=== PATIENT | male | born 1975 | race African-American/Black ===

== ENCOUNTER 2019-08-18 08:30 | Emergency (ER) | payer MEDICAID, SELFPAY ==
--- NOTE | ~2019-08-18 | XR_ITS ---
EXAMINATION: XR hand RT min 3V EXAM DATE: 08/18/2019 08:52 INDICATION: Initial encounter following injury, with pain of the right hand. Laceration to third MCP joint. TECHNIQUE: Right hand frontal, lateral and oblique projections obtained and reviewed. There is no pr ior study for comparison. FINDINGS: Right metacarpal bones are unremarkable. There is sliver-like ossific density dorsal to the third proximal interphalangeal joint measuring about 3 mm in length. This finding has been indicated . Differential diagnosis includes tiny avulsion fracture (could be open posttraumatic given reported laceration), versus foreign body. There is an old fifth proximal phalangeal shaft fracture. IMPRESSION: Tiny right third finger sliver-like density, fracture versus foreign body. Reviewed, dictated and finalized at location A. PROCESSING SPECIALIST IMPRESSION: Tiny right third finger sliver-like density, fracture versus forei gn body.
[2019-08-18 08:30] VITALS: BP 190/100; PULSE 72; RESP 16; TEMP 36.7; O2SAT 96
--- NOTE | 2019-08-18 08:46 | ED.WOUNDLAC ---
HPI - Wound/Laceration General Chief Complaint: Wound/Laceration Stated Complaint: lac finger Time Seen by Provider: 08/18/19 08:32 Source: patient Mode of arrival: ambulatory Limitations: no limitations History of Present Illness HPI narrative: Patient presents with chief complaint of laceration to the dorsal aspect of his right hand. Patient states that he became angry last night at approximately 9 PM and punched a flat screen TV. He reports he has had a prior fractures to the right hand due to punching things. Patient reports that he has had issues with becoming angry since losing his to cancer this past year. Patient reports decreased sensation to the hand is his typical baseline due to prior injuries. He denies any acute loss of range of motion. He denies suicidal or homicidal ideations at this time. Related Data Allergies Allergy/AdvReac Type Severity Reaction Status Date / Time No Known Allergies Allergy Verified 08/18/19 08:47 Review of Systems Review of Systems: Narrative: CONSTITUTIONAL: Denies fever, chills, or sweats. EYES: Denies visual changes, redness, or discharge. ENT: Denies rhinorrhea, congestion, sore throat, or otalgia. CARDIOVASCULAR: Denies chest pain, palpitations, or edema. RESPIRATORY: Denies cough or dyspnea. GASTROINTESTINAL: Denies abdominal pain, nausea, vomiting, or diarrhea. GENITOURINARY: Denies dysuria or hematuria. SKIN: Laceration right hand third digit. Abrasion to right fourth and fifth digit. MUSCULOSKELETAL: Denies back pain, joint pain, or myalgia. NEUROLOGIC: Denies headache, numbness, dizziness, or weakness. PSYCHIATRIC: Denies anxiety or depression. Exam Narrative: Exam Narrative: GENERAL: Well-appearing, well-nourished, and in no acute distress. HEAD: Normocephalic, atraumatic. EYES: PERRLA and EOMI. CHEST: Clear to auscultation. No respiratory distress. No wheezes rales or rhonchi HEART: Regular rate and rhythm. No murmur heard. Normal peripheral pulses. ABDOMEN: Soft, nontender, nondistended, normal active bowel sounds. EXTREMITIES: Range of motion intact. minimal edema noted around laceration site SKIN: 4 similar laceration to the dorsal aspect of the right third digit. Tendon is exposed but intact. No obvious foreign bodies noted. Abrasions noted to the dorsal aspect of fourth and fifth digits without any active bleeding. NEURO: No focal deficits. Alert and oriented x3. PSYCH: Normal mood and affect. Course Vital Signs Vital signs: Vital Signs Temperature 98.1 F 08/18/19 08:30 Pulse Rate 72 08/18/19 08:30 Respiratory Rate 16 08/18/19 08:30 Blood Pressure 190/100 H 08/18/19 08:30 Pulse Oximetry 96 08/18/19 08:30 Temperature 98.1 F 08/18/19 08:30 Pulse Rate 72 08/18/19 08:30 Respiratory Rate 16 08/18/19 08:30 Blood Pressure 190/100 H 08/18/19 08:30 Pulse Oximetry 96 08/18/19 08:30 Procedures Laceration Laceration 1: Date: 08/18/19 Site: hand Side (If applicable): right Size (cm): 4 Description: irregular Depth: simple, single layer (WITH SUBCUTANEOUS LAYER) Local Anesthetic: lidocaine 1% Amount of anesthesia used (mL): 4 Pre-repair: irrigated extensively ====== Skin Level ====== Skin layer closed with: nylon Size (cm): 4-0 Number of sutures: 6 ====== Subcutaneous Layer ====== Subcutaneous layer closed with: chromic gut Size: 4-0 Number of sutures: 3 Technique: simple, interrupted ====== Muscle Layer ====== ====== Tendon Layer ====== MDM - Wound/Laceration MDM Narrative Medical decision making narrative: I extensively cleaned the wound using Hibiclens and saline. Also explored the area was unable to see any foreign bodies. Wound closed as noted in procedure. Patient given wound care instructions well as instructions to follow-up with Dr. Sinclair for suture removal. Patient will be put on Keflex.
[2019-08-18 10:25] VITALS: BP 145/100; PULSE 60; RESP 16; O2SAT 96
== END 2019-08-18 10:30 | disposition home or self-care (01) ==
PROVIDERS: Emergency Provider Emergency Medicine
DX: S61.212A Laceration without foreign body of right middle finger without damage to nail, initial encounter (principal); S62.602A Fracture of unspecified phalanx of right middle finger, initial encounter for closed fracture; W22.09XA Striking against other stationary object, initial encounter
CPT/HCPCS: 12002; 12032; 12042; 29130; 73130; 99284

== ENCOUNTER 2021-08-08 12:46 | Observation (INO) | payer OTHER, SELFPAY ==
--- NOTE | ~2021-08-08 | XR_ITS ---
EXAMINATION: XR chest 2V DATE: 08/08/2021 13:11 INDICATION: Left chest pain. TECHNIQUE: Frontal and lateral views of the chest were obtained. COMPARISON: Chest single view 06/02/2019 FINDINGS: The chest demonstrates clear lungs without pneumonia, pleural effusion, or pneumothorax. Th e heart size is normal. IMPRESSION: 1. No acute cardiopulmonary disease. Reviewed, dictated and finalized at location A. ANT CLERK
--- NOTE | 2021-08-08 12:50 | ECG_ITS ---
Measurements Intervals [place] Rate: 77 P: 4 ND: 132 QRS: 56 QRSD: 78 T: 109 QT: 378 QTc: 429 Interpretive Statements SINUS RHYTHM OR ECTOPIC ATRIAL RHYTHM NONSPECIFIC ST & T-WAVE ABNORMALITY- DIFFUSE LEADS BORDERLINE ECG Electronically Signed On 08-08-2021 13:06:22 BENCH LAY OUT TECHNICIAN by Glenn Green D.O.
[2021-08-08 12:55] VITALS: BP 170/82; PULSE 85; RESP 20; TEMP 36.1; O2SAT 100
[2021-08-08 13:10] LABS: Basophils Percent Auto 0.6 % (0.2-1.2); Eosinophils Absolute Auto 0.3 K/mm3 (0-0.3); Eosinophils Percent Auto 4.4 % (0-4.4); Hematocrit 47.4 % (42.0-52.0); Hemoglobin 15.9 g/dL (14.0-18.0); Immature Granulocyte Absolute 0.01 K/mm3 (0.00-0.031); Immature Granulocyte Percent A 0.1 % (0-0.5); Lymphocytes Absolute Auto 2.43 K/mm3 (0.9-3.2); Lymphocytes Percent Auto 35.7 % (18.3-44.2); Mean Corpuscular HGB Conc 33.5 g/dl (32-36); Mean Corpuscular Hemoglobin 30.7 pg (26-34); Mean Corpuscular Volume 91.5 fl (80-100); Mean Platelet Volume 10.8 fl (7.4-10.4); Monocytes Absolute Auto 0.7 K/mm3 (0.1-0.6); Monocytes Percent Auto 10.4 % (2.6-8.5); Neutrophils Absolute Auto 3.3 K/mm3 (1.3-6.7); Neutrophils Percent Auto 48.8 % (45.5-73.1); Platelet Count Result 202 k/mm3 (150-375); Red Blood Count 5.18 M/mm3 (4.6-6.20); Red Cell Distribution Width 13.6 % (11.5-14.5); White Blood Count 6.8 K/mm3 (4.5-10.0)
[2021-08-08 13:24] LABS: INR 0.9; Prothrombin Time 12.1 Seconds (11.1-14.7)
[2021-08-08 13:25] LABS: Partial Thromboplastin Time 24.9 SECONDS (22.3-36.8)
[2021-08-08] MEDS: ASPIRIN 81 MG CHEWABLE TABLET 324 MG PO (13:27)
[2021-08-08 13:30] LABS: Anion Gap 11 mmol/L (8-16); Blood Urea Nitrogen 12 mg/dL (9-20); Calcium 9.6 mg/dL (8.4-10.2); Carbon Dioxide 24 mmol/L (22-30); Chloride 102 mmol/L (98-107); Estimated CRCL calculation 91 ml/min; Estimated Glomerular Filt Rate > 60; Glucose 118 mg/dL (65-110); Potassium 4.1 mmol/L (3.4-5.0); Sodium 137 mmol/L (137-145)
[2021-08-08 13:42] LABS: Troponin I < 0.012 ng/mL (0.000-0.034)
[2021-08-08 14:34] LABS: Add Urine Microscopic? YES; Appearance Urine Cloudy (Clear); Bilirubin Urine Negative (Negative); Blood Urine Negative (Negative); Color Urine Yellow (Yellow); Glucose Urine UA Negative (Negative); Ketones Urine Negative (Negative); Leukocyte Esterase Ur Negative LEU/UL (Negative); Mucus Urine Moderate /lpf; Nitrate Urine Negative (Negative); Protein Urine 1+ mg/dL (Negative); Squamous Epithelial Cell Urine Rare /hpf (Few); WBC Urine 0-3 /hpf
[2021-08-08 14:35] VITALS: BP 152/98; PULSE 82; RESP 18; O2SAT 97
[2021-08-08 14:43] LABS: Specific Grav Ur 1.033 (1.001-1.035)
[2021-08-08 14:45] LABS: Amphetamine Screen Urine Negative (Negative); Barbiturate Screen Urine Negative (Negative); Benzodiazepines Screen Urine Negative (Negative); Cannabinoid Screen Urine Positive (Negative); Cocaine Screen Urine Positive (Negative); Methadone Screen Urine Negative (Negative); Opiate Screen Urine Negative (Negative); Phencyclidine Screen Urine Negative (Negative)
[2021-08-08 16:33] LABS: Troponin I 0.022 ng/mL (0.000-0.034)
--- NOTE | 2021-08-08 17:00 | ED.ARRPALP ---
HPI - Arrhythmia/Palpitations General Chief Complaint: Chest Pain Stated Complaint: CHEST PAIN Time Seen by Provider: 08/08/21 15:08 Source: patient Mode of arrival: ambulatory Limitations: no limitations History of Present Illness HPI narrative: 46-year-old male Patient presents to the ED complaining of a fluttering sensation in the left chest which has been present intermittently for 1 to 2 days Currently is not there and he says it only lasts for a couple of minutes at a time He occasionally has some chest tightness He does use cocaine Additionally he drinks at least 6 beers every day but no hard liquor He also has a history of bipolar and does not sound like he is taking any of his prescribed medications and is followed at [facility] He is not floridly suicidal or homicidal but did answer yes on the screening questions and does say that he had a history of a suicide attempt by overdose several months ago although he tells me that he has not got an active plan at this time Related Data Allergies Allergy/AdvReac Type Severity Reaction Status Date / Time No Known Allergies Allergy Verified 08/18/19 08:47 Review of Systems Review of Systems: All systems reviewed & are unremarkable except as noted in HPI and below Constitutional: Constitutional: Reports no additional constitutional complaints, Denies chills, Denies fever(s) and Denies headache(s) Eyes: Eyes: Reports no additional eye complaints and Denies change in vision ENT: Denies headache(s) and Denies sore throat Cardiovascular: Cardiovascular: Reports chest pain, Reports rapid heart rate and Denies dyspnea Respiratory: Respiratory: Denies cough and Denies dyspnea Gastrointestinal: Gastrointestinal: Denies abdominal pain, Denies diarrhea and Denies vomiting Genitourinary: Genitourinary: Denies dysuria and Denies urinary frequency Musculoskeletal: Musculoskeletal: Denies deformity, Denies arthralgias, Denies joint swelling and Denies numbness Integumentary/Breasts: Skin/Breast: Denies rash and Denies wounds Neurologic: Denies headache(s), Denies focal weakness and Denies numbness Psychiatric: Psychiatric: Reports depression, Reports homicidal ideation and Reports suicidal ideation Endocrine: Endocrine: Reports no additional endocrine complaints Hematologic/Lymphatic: Hematologic/Lymphatic: Reports no additional hematologic/lymphatic complaints Allergic/Immunologic: Allergic/Immunologic: Reports no additional allergic/immunologic complaints [facility] Social History Social History Substance use type: marijuana and crack/cocaine Exam Const: General: cooperative, no acute distress and alert Orientation/consciousness: patient oriented x3 (alert) HENMT: Head: normal to inspection, normocephalic and atraumatic Ears: external ears normal General nose exam: no epistaxis Eyes: Conjunctivae: conjunctivae normal EOM: EOMs intact bilaterally Neck: Neck: normal visual inspection, supple and no JVD Chest: Chest palpation & inspection: no tenderness Resp: Effort & Inspection: normal respiratory effort and not labored Auscultation: clear to auscultation bilaterally, no rales, no rhonchi, no wheezes and other (BS =) Cardio: Rate: regular rate Rhythm: regular rhythm Heart sounds: no murmurs GI: GI Palp: Yes Soft to palpation and No Tenderness to palpation present (GI) Skin: General skin exam: normal color and no rashes or lesions noted Neuro: General: patient oriented x3 (alert) and moves all extremities Speech: normal speech Extrem: General: normal to inspection and no pedal edema Psych: Affect: normal affect Course Course Emergency Course: He has cardiac complaints and a rising, though still normal, troponin context of cocaine use, cannot check clear him for crisis, will be obs Vital Signs Vital signs: Vital Signs Temperature 36.1 C L 08/08/21 12:55 Pulse Rate 85 08/08/21 12:55 Re
[2021-08-08 18:04] VITALS: BP 149/99; PULSE 81; RESP 16; O2SAT 97
--- NOTE | 2021-08-08 18:53 | ADMGEN ---
This patient, Tomy Srivastava, was admitted to Intensive Care Unit-6 at 1853 on 08/08/2021. Patient/family oriented to hospital policies and general routines including ID bracelet, bed and alarms, visiting hours, pain management, procedures, bathroom and other care routines, personal items, smoking policy, room service/diet, and visiting hours. Report received from Blanca BRAN. Information on how to activate the Rapid Response Team has been discussed. Patient/Family are encouraged to report perceived risks to care and to ask questions if they do not understand what they are told or what they should do.
[2021-08-08] MEDS: LACTATED RINGERS 1,000 ML 125 ML IV CONT (19:02)
[2021-08-08 19:21] LABS: Troponin I < 0.012 ng/mL (0.000-0.034)
[2021-08-08 19:34] VITALS: BMI 25.4
[2021-08-08 19:55] VITALS: BP 144/95; PULSE 70; RESP 16; TEMP 36.8; O2SAT 96
--- NOTE | 2021-08-08 20:02 | PC.NURSE ---
This patient, Tomy Srivastava, was admitted to Intensive Care Unit-6. Patient/family oriented to hospital policies and general routines including ID bracelet, bed and alarms, visiting hours, pain management, procedures, bathroom and other care routines, personal items, smoking policy, room service/diet, and visiting hours. Information on how to activate the Rapid Response Team has been discussed. Patient/Family are encouraged to report perceived risks to care and to ask questions if they do not understand what they are told or what they should do.
--- NOTE | 2021-08-08 21:00 | PM.IMHP ---
H&P: HPI History of Present Illness Date/Time: 08/08/21 21:00 Chief Complaint: Fluttering sensation in his chest Narrative: 46-year-old male with past medical history of bipolar disorder, tobacco abuse, cocaine abuse and alcohol abuse who presented to the ER with suicidal thoughts since sensation of fluttering in his chest. The patient reports that for the last several days he has had intermittent fluttering in his chest. He denies any chest pain, or pressure. He denies any chest tightness. He reports that the palpitations will occur at rest. He denies any orthopnea, lower extremity swelling or paroxysmal nocturnal dyspnea. He has not had any significant cough or congestion but does report a tickle in his throat. He has been vaccinated against COVID-19. He has had 3 sets of cardiac enzymes that are negative. He reports that over the last 3 days he has also been having symptoms of depression. He reports suicidal ideation in wants to take all the rest of his pills to kill himself. He states he does not want to live. He feels like he cannot do anything right. He feels like he can not make anyone happy. He has prescriptions for fluoxetine olanzapine and trazodone that were filled in March. He still has several tablets of each of the medications left in the bottles. He reports that he occasionally takes the medications but not like he should. He has been treating his psychiatric symptoms with alcohol. He drinks about 10 beers a day. He does get irritable and agitated if he does not drink alcohol. He also snorts cocaine with the last use being 1 week ago. He smokes 1 pack of cigarettes per day. He reports that he occasionally gets angry at people and feels as if he wants to hurt them. He denies any homicidal ideation at this point. He states that he is motivated and wants to quit drinking alcohol and wants to go back to [facility] where he was treated for depression previously. He recently moved back in with his mother in his sister who has intellectual disability. He reports that he is under increased stress currently in because he lost his job at the [employer]. His mom also needs a pacemaker placed which has caused more anxiety. He reports that he is anxious on a daily basis. He received the Pfizer vaccine for COVID-19. His 2nd dose was a couple of months ago. Review of Systems Review of Systems: 12 systems were reviewed with pertinent positives and negatives per HPI. Except as documented in the HPI, all other systems were reviewed and are negative. [facility] Past Medical History Medical History (Updated 08/08/21 @ 22:13 by Haleigh Angelo DO) Alcohol abuse Bipolar disorder Continuous tobacco abuse Surgical History Surgical History (Updated 08/08/21 @ 21:03 by Haleigh Angelo DO) History of hand surgery Repair of fracture Status post myringotomy with tube placement of both ears Family History Family History Mother Acute myocardial infarction Congestive heart failure Diabetes mellitus Hypertension Grandparent Acute myocardial infarction Congestive heart failure Diabetes mellitus Other Cerebrovascular accident Diabetes mellitus Sibling Diabetes mellitus Social History Social History (Updated 08/08/21 @ 22:10 by Haleigh Angelo DO) Social History: He recently lost his job as a [employer]. He has moved back in with his mother and developmentally disabled sister. He drinks about 10 beers a day if he can afford it. He has smoked a pack of cigarettes per day since the age of 20. He last snorted cocaine 1 week ago. He occasionally smoke marijuana. Smoking packs per day: 1 Smoking cigarettes per day: 20.0 Years smoked: 26 Smoking pack-years: 26.00 Smoking status: Current every day smoker Tobacco type: cigarettes Second hand tobacco smoke exposure: Yes Alcohol intake: current Drinks per week: 70 Substance use: current
[2021-08-08] MEDS: lamoTRIgine 25 MG TABLET PO (22:26)
[2021-08-08] MEDS: ENOXAPARIN 40 MG/0.4 ML SYRINGE SUB-Q (22:26)
[2021-08-08] MEDS: chlordiazePOXIDE (*CRX) 25 MG CAPSULE PO (22:26)
[2021-08-08] MEDS: NICOTINE (*PBKC) 21 MG PATCH 1 PATCH TRANSDERM (23:11)
[2021-08-08] MEDS: THIAMINE HCL 200 MG/2 ML VIAL 500 MG IV PUSH (23:11)
[2021-08-09] VITALS (8 sets, daily range): BP systolic 132–156; BP diastolic 86–116; PULSE 64–110; RESP 13–20; TEMP 36.4; O2SAT 96–99
[2021-08-09] MEDS: LACTATED RINGERS 1,000 ML 125 ML IV CONT (03:02)
[2021-08-09] MEDS: chlordiazePOXIDE (*CRX) 25 MG CAPSULE PO (05:45)
--- NOTE | 2021-08-09 09:05 | ECG_ITS ---
Measurements Intervals [place] Rate: 73 P: 28 [place]: 143 QRS: 44 QRSD: 86 T: 37 QT: 419 QTc: 463 Interpretive Statements SINUS RHYTHM NONSPECIFIC ST & T-WAVE ABNORMALITY- IINF/LAT LEADS BORDERLINE ECG Electronically Signed On 08-09-2021 9:47:29 STEAM TRAP WORKER by Glenn Green D.O.
[2021-08-09] MEDS: THIAMINE HCL 100 MG TABLET PO (09:14)
[2021-08-09] MEDS: OLANZapine 5 MG TABLET 10 MG PO ×2 (09:14→16:38)
[2021-08-09] MEDS: FLUoxetine HCL 20 MG CAPSULE PO (09:14)
[2021-08-09] MEDS: FOLIC ACID 1 MG TABLET PO (09:14)
[2021-08-09] MEDS: NICOTINE (*PBKC) 21 MG PATCH 1 PATCH TRANSDERM (09:15)
[2021-08-09] MEDS: ASPIRIN 81 MG CHEWABLE TABLET PO (09:15)
[2021-08-09] MEDS: lamoTRIgine 25 MG TABLET PO ×2 (09:15→20:55)
--- NOTE | 2021-08-09 09:33 | PM.IMPN ---
Progress Note: A&P Assessment and Plan (1) Suicidal ideation: Code(s): R45.851 - Suicidal ideations Status: Acute Assessment and Plan: Suicide precautions in place with safety belt installer at bedside. Patient will be evaluated by Psychiatry (2) Chest pain: Qualifiers: Chest pain type: unspecified Qualified Code(s): R07.9 - Chest pain, unspecified Code(s): R07.9 - Chest pain, unspecified Status: Acute Assessment and Plan: The patient denies any true chest pain. He has been ruled out for cardiac ischemia with 3- sets of enzymes. He does have abnormal EKG on presentation nonspecific changes. I will repeat EKG this morning Although he denies cocaine use for last 1 week his UDS was positive for cocaine and cannabinoids (3) Cocaine use: Code(s): F14.90 - Cocaine use, unspecified, uncomplicated Status: Acute Assessment and Plan: Cessation education has been provided. (4) Continuous tobacco abuse: Code(s): Z72.0 - Tobacco use Status: Acute Assessment and Plan: Patient was counseled and encouraged to quit smoking Nicotine patch has been provided. (5) Alcohol abuse: Code(s): F10.10 - Alcohol abuse, uncomplicated Status: Acute Assessment and Plan: Will monitor CIWA scores. No evidence of alcohol withdrawal at this time. Thiamine and folic acid supplementation have been provided. Subjective Date/time seen: 08/09/21 09:33 Overnight events reviewed. Afebrile. Vitals acceptable Patient states that he is feeling better denies any new complaints at this time. He states the fluttering in his chest has gone away. He denies any chest pain shortness of breath abdominal pain nausea vomiting at this time. He states that his fluttering lasts only few seconds and he does feel anxious at that time. He does not describe it as a pain. He states that his last cocaine use was more than a week ago. He does smoke every day and drinks 8-9 beers every day. He feels hungry at this time and would like to eat food. He states that he feels depressed and would like to go to a inpatient psychiatry to get 'handle on things' All the systems were reviewed and were negative Review of Systems Review of Systems: All systems reviewed & are unremarkable except as noted in HPI and below (Subjective) Exam Narrative: General: Pt is alert awake and in NAD Lungs/Chest: Trachea central Clear BS B/L, No crackles or wheezing. No tenderness on chest Cardiac: RRR. Normal S1 S2. No murmurs Circulation: Pedal pulses are intact and symmetrical. Abdomen: Normal bowel sounds.. Soft. NT. ND. Extremities: No clubbing, cyanosis or edema. Warm : Alonzo in place Neurologic: Follows commands. Moves all 4 extremities PERRL Skin: No Rash Objective Data Vital Signs Vital Signs: Vital Signs - 24 hr 08/08/21 12:55 08/08/21 14:35 08/08/21 18:04 Temperature 36.1 C L Pulse Rate 85 82 81 Respiratory Rate 20 18 16 Blood Pressure 170/82 H 152/98 H 149/99 H Pulse Oximetry 100 97 97 08/08/21 19:55 08/09/21 02:00 08/09/21 06:00 Temperature 36.8 C Pulse Rate 70 78 66 Respiratory Rate 16 Blood Pressure 144/95 H Pulse Oximetry 96 Intake/Output Intake/Output: Intake & Output 08/06/21 08/07/21 08/08/21 08/09/21 23:59 23:59 23:59 23:59 Intake Total 1800 Output Total 300 Balance 1500 Meds/Results Medications: Active Medications Generic Name Dose Route Start Last Admin Trade Name Héctorq PRN Reason Stop Dose Admin Acetaminophen 650 mg 08/08/21 17:40 Acetaminophen 325 Mg Tablet PO Q4H PRN Mild Pain (1-3) or Fever Aspirin 81 mg 08/09/21 08:00 08/09/21 09:15 Aspirin 81 Mg Chewable Tablet PO 81 mg DAILY@0800 ANANYA Administration Enoxaparin Sodium 40 mg 08/08/21 21:00 08/08/21 22:26 Enoxaparin 40 Mg/0.4 Ml Syringe SUB-Q 40 mg Q24H ANANYA Administration Fluoxetine HCl
[2021-08-09] MEDS: hydrALAZINE HCL 20 MG/ML VIAL IV PUSH ×2 (16:38→20:55)
[2021-08-09 17:15] LABS: SARS-CoV-2 RNA PCR Negative (Negative)
[2021-08-09] MEDS: ENOXAPARIN 40 MG/0.4 ML SYRINGE SUB-Q (20:55)
[2021-08-09] MEDS: amLODIPine BESYLATE 5 MG TABLET PO (22:25)
--- NOTE | 2021-08-25 13:43 | PM.DS ---
DS: Admitting Diagnosis Discharge Date 08/09/21 Admitting Diagnosis Suicidal ideation, chest pain, cocaine use, tobacco and alcohol abuse DS: Discharge Diagnosis Discharge Diagnosis (1) Suicidal ideation: Code(s): R45.851 - Suicidal ideations Status: Acute Assessment and Plan: Patient was placed on one-to-one observation in the hospital. Patient was Evaluated by Psychiatry and transferred to inpatient psychiatric facility for further management of his bipolar mood disorder (2) Chest pain: Qualifiers: Chest pain type: unspecified Qualified Code(s): R07.9 - Chest pain, unspecified Code(s): R07.9 - Chest pain, unspecified Status: Acute Assessment and Plan: Atypical chest pain, nonspecific changes on EKG Troponin x3 negative (3) Cocaine use: Code(s): F14.90 - Cocaine use, unspecified, uncomplicated Status: Acute Assessment and Plan: Patient was counseled to quit cocaine use (4) Alcohol abuse: Code(s): F10.10 - Alcohol abuse, uncomplicated Status: Acute Assessment and Plan: Patient was monitored for alcohol withdrawal symptoms and did not had any evidence of alcohol withdrawal Time mean folic acid was provided (5) Continuous tobacco abuse: Code(s): Z72.0 - Tobacco use Status: Acute Assessment and Plan: Patient was counseled and encouraged to quit (6) Bipolar 1 disorder: Code(s): F31.9 - Bipolar disorder, unspecified Status: Acute (7) Hypertension: Code(s): I10 - Essential (primary) hypertension Status: Acute Assessment and Plan: Patient was started on Norvasc DS: Summary Hospital Course Hospital Course: Patient was placed on one-to-one observation in the hospital. Patient was Evaluated by Psychiatry and transferred to inpatient psychiatric facility for further management of his bipolar mood disorder Atypical chest pain, nonspecific changes on EKG. Troponin x3 negative Patient was counseled to quit cocaine use and smoking Patient was monitored for alcohol withdrawal symptoms and did not had any evidence of alcohol withdrawal. Time mean folic acid was provided Patient was started on Norvasc for hypertension Time Spent with Patient Time attestation: Total time spent providing and/or coordinating discharge services: Exam Narrative: General: Pt is alert awake and in NAD Lungs/Chest: Trachea central Clear BS B/L, No crackles or wheezing. No tenderness on chest Cardiac: RRR. Normal S1 S2. No murmurs Circulation: Pedal pulses are intact and symmetrical. Abdomen: Normal bowel sounds.. Soft. NT. ND. Extremities: No clubbing, cyanosis or edema. Warm : Alonzo in place Neurologic: Follows commands. Moves all 4 extremities PERRL Skin: No Rash Discharge Plan Discharge Consulting providers: Kenn Sandy ; Prince Franklin ; Glenn Green ; Haleigh Angelo ; Carlos Enrique Price V. Anticipated Discharge Date/Time: 08/09/21 23:17 Patient Disposition: Acute Care Hospital Activity: unlimited Diet: regular Patient Instructions: Chlordiazepoxide (By mouth), Enoxaparin (By injection), How to Stop Smoking (DC) Discharge Medications: New olanzapine 5 mg Tablet 10 mg PO BID RF: 0 amlodipine [Norvasc] 5 mg Tablet 5 mg PO QAM RF: 0 lamotrigine [Lamictal] 25 mg Tablet 25 mg PO Q12HR RF: 0 fluoxetine 20 mg Tablet 20 mg PO DAILY RF: 0 Continued olanzapine 20 mg tablet 10 mg PO BID RF: 0 trazodone 50 mg tablet 50 mg PO HS PRN (Reason: Sleep) RF: 0 Discontinued fluoxetine 40 mg capsule 40 mg PO DAILY RF: 0 Date of admission: 08/08/21 17:40 Primary Care Provider: PHYSICIAN,MANAGER EMPLOYEE BENEFITS Admitting Provider: Thiago Colon Attending physician on admission: Thiago Colon Condition: Stable Quality VTE Prophylaxis VTE prophylaxis: pharmacologic ordered (Lovenox 40 mg subQ daily.)
== END 2021-08-09 23:24 ==
LOC: ANHED 17:40 → ANHICU 18:12
PROVIDERS: Emergency Medicine; Internal Medicine; Admitting Provider Internal Medicine; Emergency Provider Emergency Medicine; Visit Provider Internal Medicine
DX: R45.851 Suicidal ideations (principal); R07.9 Chest pain, unspecified; F31.9 Bipolar disorder, unspecified; F17.210 Nicotine dependence, cigarettes, uncomplicated; F14.90 Cocaine use, unspecified, uncomplicated; Z20.822 Contact with and (suspected) exposure to COVID-19; Z79.899 Other long term (current) drug therapy
CPT/HCPCS: 36415; 71046; 80048; 80307; 81001; 84443; 84484; 85025; 85610; 85730; 93005; 96361; 96372; 96374; 96376; 99285; A9270; C9803; G0378; G0379; J0360; J1650; J3411; J7120; U0003; U0005

== ENCOUNTER 2022-12-16 19:02 | Emergency (ER) | payer OTHER, SELFPAY ==
--- NOTE | ~2022-12-16 | XR_ITS ---
XR chest 1V portable DATE: 12/16/2022 20:40 INDICATION: Chest pain TECHNIQUE: Portable upright AP chest on 12/16/2022 at 2035 hours COMPARISON: 08/08/2021 PA and lateral chest FINDINGS: Normal heart size. No hilar or mediastinal enlargement. No pulmonary infiltrate or consolid ation, pleural effusion or pulmonary mass congestion or pneumothorax. IMPRESSION: No active cardiopulmonary disease Reviewed, dictated and finalized at location A.
[2022-12-16 19:07] VITALS: BP 171/89; PULSE 95; RESP 16; TEMP 36.4; O2SAT 95
--- NOTE | 2022-12-16 19:12 | ECG_ITS ---
Measurements Intervals [place] Rate: 91 P: 49 [place]: 142 QRS: 62 QRSD: 76 T: 81 QT: 358 QTc: 442 Interpretive Statements SINUS RHYTHM POSSIBLE LEFT ATRIAL ENLARGEMENT BORDERLINE ST-T WAVE ABNORMALITY- DIFFUSE LEADS BASELINE ARTIFACT- I, AVR, AVL, AVF, V4 BORDERLINE ECG COMPARED TO ECG 08/09/2021 09:43:55 NO SIGNIFICANT CHANGES Electronically Signed On 12-16-2022 20:23:15 CDT by Glenn Green D.O.
[2022-12-16 19:26] LABS: Basophils Absolute Auto 0.1 K/mm3 (0.0-0.1); Basophils Percent Auto 0.6 % (0.2-1.2); Eosinophils Absolute Auto 0.2 K/mm3 (0-0.3); Eosinophils Percent Auto 2.3 % (0-4.4); Hematocrit 44.8 % (42.0-52.0); Hemoglobin 14.6 g/dL (14.0-18.0); Immature Granulocyte Absolute 0.01 K/mm3 (0.00-0.031); Immature Granulocyte Percent A 0.1 % (0-0.5); Lymphocytes Absolute Auto 2.81 K/mm3 (0.9-3.2); Lymphocytes Percent Auto 34.5 % (18.3-44.2); Mean Corpuscular HGB Conc 32.6 g/dl (32-36); Mean Corpuscular Hemoglobin 29.6 pg (26-34); Mean Corpuscular Volume 90.7 fl (80-100); Monocytes Absolute Auto 0.4 K/mm3 (0.1-0.6); Monocytes Percent Auto 4.7 % (2.6-8.5); Neutrophils Absolute Auto 4.7 K/mm3 (1.3-6.7); Neutrophils Percent Auto 57.8 % (45.5-73.1); Platelet Count Result 207 k/mm3 (150-375); Red Blood Count 4.94 M/mm3 (4.6-6.20); Red Cell Distribution Width 13.9 % (11.5-14.5); White Blood Count 8.2 K/mm3 (4.5-10.0)
[2022-12-16 19:39] LABS: Ethanol < 10 mg/dL (<10)
[2022-12-16 19:42] LABS: Appearance Urine Clear (Clear); Bacteria Urine None Seen /hpf; Bilirubin Urine Negative (Negative); Blood Urine Negative (Negative); Color Urine Yellow (Yellow); Glucose Urine UA Negative (Negative); Ketones Urine Trace mg/dL (Negative); Leukocyte Esterase Ur Negative LEU/UL (Negative); Nitrate Urine Negative (Negative); Non Pathogenic Casts 0-2; Protein Urine Trace mg/dL (Negative); RBC Urine 0-2 /hpf (0-2); Specific Grav Ur 1.025 (1.001-1.035); Squamous Epithelial Cell Urine None seen /hpf (Few); WBC Urine 0-5 /hpf; pH Urine 5.5 (5.0-9.0)
[2022-12-16 19:44] LABS: Add Urine Microscopic? YES
[2022-12-16 19:48] LABS: Alanine Aminotransferase 55 U/L (6-50); Albumin Level 4.6 g/dL (3.5-5.1); Alkaline Phosphatase 90 U/L (38-126); Anion Gap 7 mmol/L (8-16); Aspartate Amino Transferase 38 U/L (17-59); Bilirubin,Total 0.5 mg/dL (0.2-1.3); Blood Urea Nitrogen 22 mg/dL (9-20); Calcium 9.1 mg/dL (8.4-10.2); Carbon Dioxide 24 mmol/L (22-30); Chloride 108 mmol/L (98-107); Estimated CRCL calculation 82 ml/min; Estimated Glomerular Filt Rate > 60; Glucose 157 mg/dL (65-110); Potassium 4.1 mmol/L (3.4-5.0); Sodium 139 mmol/L (137-145)
[2022-12-16 19:50] LABS: Amphetamine Screen Urine Negative (Negative); Barbiturate Screen Urine Negative (Negative); Benzodiazepines Screen Urine Negative (Negative); Cannabinoid Screen Urine Positive (Negative); Cocaine Screen Urine Positive (Negative); Methadone Screen Urine Negative (Negative); Opiate Screen Urine Negative (Negative); Phencyclidine Screen Urine Negative (Negative)
[2022-12-16 20:22] LABS: Influenza A QL RT-PCR Negative (Negative); Influenza B QL RT-PCR Negative (Negative); RSV RNA, RT-PCR Negative (Negative); SARS-CoV-2 RNA PCR Negative
[2022-12-16 21:08] LABS: Troponin I < 0.012 ng/mL (0.000-0.034)
[2022-12-17 00:13] LABS: Troponin I < 0.012 ng/mL (0.000-0.034)
--- NOTE | 2022-12-17 00:24 | ED.GENADULT ---
HPI - General Adult General Chief complaint: Psychiatric Symptoms Stated complaint: palpations Time Seen by Provider: 12/16/22 20:02 History of Present Illness HPI narrative: Patient 47-year-old gentleman who presents the emergency department with chief complaint of suicidal ideation. Patient reports that he has been having some palpitations and chest discomfort intermittently for some time patient states that also he has been having thoughts of hurting himself and states that he took some pills yesterday patient states that he woke up today and decided he should come to the emergency department for evaluation Related Data Home Medications Medication Instructions Recorded Confirmed olanzapine 20 mg tablet 10 mg PO BID 08/08/21 08/08/21 trazodone 50 mg tablet 50 mg PO HS PRN Sleep 08/08/21 08/08/21 Allergies Allergy/AdvReac Type Severity Reaction Status Date / Time No Known Allergies Allergy Verified 12/16/22 19:07 Review of Systems Review of Systems: A 10 system review of systems was completed on the patient and is negative except for what is stated in the HPI. Nursing and ancillary documentation was reviewed. 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 He has moved back in with his mother and developmentally disabled sister. He drinks about 10 beers a day if he can afford it. He has smoked a pack of cigarettes per day since the age of 20. He last snorted cocaine 1 week ago. He occasionally smoke marijuana. Smoking packs per day: 1 Smoking cigarettes per day: 20.0 Years smoked: 26 Smoking pack-years: 26.00 Smoking status: Current every day smoker Tobacco type: cigarettes Second hand tobacco smoke exposure: Yes Alcohol intake: current Drinks per week: 70 Substance use: current Substance use type: unknown Last use: 2 weeks ago Spiritual care concerns: No Exam Narrative: GENERAL: Well-appearing, well-nourished, and in no acute distress. HEAD: Normocephalic, atraumatic. EYES: PERRLA and EOMI. ENT: Nares clear, no rhinorrhea or epistaxis. Mucous membranes moist. NECK: Supple. CHEST: Clear to auscultation. No respiratory distress. HEART: Regular rate and rhythm. No murmur heard. Normal peripheral pulses. ABDOMEN: Soft, nontender, nondistended, normal active bowel sounds. EXTREMITIES: Normal range of motion. No edema. SKIN: Warm, dry, no rash. NEURO: No focal deficits. Alert and oriented x3. PSYCH: Depressed affect reports to suicidal ideation Course Vital Signs Vital signs: Vital Signs Temperature 36.4 C 12/16/22 19:07 Pulse Rate 95 12/16/22 19:07 Respiratory Rate 16 12/16/22 19:07 Blood Pressure 171/89 H 12/16/22 19:07 Pulse Oximetry 95 12/16/22 19:07 Oxygen Delivery Room Air 12/16/22 19:07 Temperature 36.4 C 12/16/22 19:07 Pulse Rate 68 12/17/22 04:40 Respiratory Rate 16 12/17/22 04:40 Blood Pressure 162/96 H 12/17/22 04:40 Pulse Oximetry 99 12/17/22 04:40 Oxygen Delivery Room Air 12/16/22 19:07 Medical Decision Making MDM Narrative Medical decision making narrative: Differential diagnosi
[2022-12-17 04:40] VITALS: BP 162/96; PULSE 68; RESP 16; O2SAT 99
[2022-12-17 08:35] VITALS: BP 129/65; PULSE 66; RESP 16; TEMP 36.8; O2SAT 97
--- NOTE | 2022-12-17 08:59 | PC.NURSE ---
[id number] accepted transfer to [facility] ETA 1.5hr
== END 2022-12-17 10:52 ==
PROVIDERS: Preventive Medicine Aerospace Medicine; Emergency Provider Emergency Medicine
DX: R45.851 Suicidal ideations (principal); R07.9 Chest pain, unspecified; F14.90 Cocaine use, unspecified, uncomplicated; Z20.822 Contact with and (suspected) exposure to COVID-19; F31.9 Bipolar disorder, unspecified; F17.210 Nicotine dependence, cigarettes, uncomplicated; R94.31 Abnormal electrocardiogram [ECG] [EKG]
CPT/HCPCS: 36415; 71045; 80053; 80307; 81001; 84443; 84484; 85025; 87637; 93005; 99283

== ENCOUNTER 2025-01-01 13:48 | Emergency (ER) | payer SELFPAY ==
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
[2025-01-01 13:50] VITALS: BP 126/87; PULSE 86; RESP 20; TEMP 36.8; O2SAT 100
--- OUTSIDE RECORDS SUMMARY | 2025-01-01 13:50 | XMS_ITS | Clinical Summary ---
Author Organization [facility] Address [address] [place] [address] Care Team Providers Care Commercial Parts Professional Name Role Phone Basil Ch MD Primary Care Provider [phone] Source Comments [facility],non-owned Affiliates and Associated Physician Practices is amultiple site organization consisting of ambulatory clinics and hospital sitesin [place], [place], [place] and [place]. This disclosure is being madepursuant to the Care Everywhere program and may not contain all information available regarding this patient. Last updated 18.[facility] Allergies No known active allergies Medications Be aware that medications may not be up to date on this document. Always verify current medications with the patient. No known medications Social History Tobacco Use Types Packs/Day Years Used Date Smoking Tobacco: Every Day Smokeless Tobacco: Never Alcohol Use Standard Drinks/Week Comments No 0 (1 standard drink = 0.6 oz pur e alcohol) clean for 2 years Sex and Gender Information Value Date Recorded Sex Assigned at Not on file Gender Identity Not on file Sexual Orientation Not on file Last Filed Vital Signs Vital Sign Reading Time Taken Comments Blood Pressure 133/92 01/11/2018 6:59 PM CDT Pulse 76 01/11/2018 6:59 PM CDT Temperature - - Respiratory Rate 20 01/11/2018 6:59 PM CDT Oxygen Saturation 100% 01/11/2018 6:59 PM CDT Inhaled Oxygen Concentration - - Weight 88.5 kg (195 lb) 01/11/2018 6:12 PM CDT Height 193 cm (6' 4 ) 01/11/2018 6:12 PM CDT Body Mass Index 23.74 01/11/2018 6:12 PM CDT Plan of Treatment Health Maintenance Due Date Last Done Comments COLOGUARD (AGES 45-75) - COL ON CA SCREENING 1974 COLON MONITORING 1974 COLONOSCOPY - COLON CA SCREENING 1974 CT COLONOGRAPHY - COLON CA SCREENING 1974 Colorectal Cancer Screening 1974 FIT - COLON CA SCREENING 1974 FLEX SIG - COLON CA SCREENING 1974 LIPID TESTING 1974 HIV SCREENING 1989 HEPATITIS C SCREENING 07/10/1992 DTAP/TDAP/TD VACCINES (1 - Tdap) 1993 HEPATITIS B VACCINE (1 of 3 - 19+ 3-dose series) 1993 PNEUMOCOCCAL VACCINE 50+ (1 of 2 - PCV) 1993 PNEUMOCOCCAL VACCINE (1 of 2 - PCV) 1993 COVID-19 VACCINE (1 - 2023-2 5 season) 2024 ZOSTER VACCINE (1 of 2) 2024 DEPRESSION SCREENING 09/23/2024 INFLUENZA VACCINE (Season Ended) 2025 HIB VACCINE Aged Out No longer eligi ble based on patient's age to complete this topic HPV VACCINE Aged Out No longer eligi ble based on patient's age to complete this topic MENINGOCOCCAL (Group B) VACC INE SHARED DECISION-MAKING Aged Out No longer eligibl e based on patient's age to complete this topic MENINGOCOCCAL GROUPS A/C/Y/W VACCINE Aged Out No longer eligible b ased on patient's age to complete this topic Care Teams Commercial Parts Professional Relationship Specialty Start Date End Date Basil Ch MD [address] [facility] [address] [place] [address] PCP - General Family Medicine 01/11/18
--- OUTSIDE RECORDS SUMMARY | 2025-01-01 13:50 | XMS_ITS | Referral Summary ---
Author Organization [facility] [address] Address [address] [place] [id number] Care Team Providers Care Telecommunications Manager Name Role Phone Raymundo Granado MD Primary Care Provider [phone] Mike Orozco MD Unavailable Allergies No known active allergies Medications traZODone (DESYREL) 50 mg tabletIndicatio ns:Insomnia due to other mental disorder Take 1 tablet (50 mg total) by mouth nightly as needed for sleep 90 tablet 3 01/18/2022 Active atorvastatin (LIPITOR) 20 mg tabletIndicatio ns:Hypercholest erolemia Take 1 tablet (20 mg total) by mouth daily 30 tablet 5 01/18/[address] (VOLTAREN) 75 mg EC tabletIndicatio ns:Bursitis Take 1 tablet (75 mg total) by mouth 2 (two) times a day 60 tablet 02/07/2022 Active FLUoxetine (PROzac) 20 mg capsuleIndicati ons:Bipolar 1 disorder (HCC) TAKE 1 CAPSULE BY MOUTH DAILY FOR 7 DAYS, THEN 2 CAPSULES DAILY. 173 capsule 04/12/2022 Active Active Problems Problem Noted Date Diagnosed Date Prepatellar bursitis of right knee 02/07/2022 Assessment & Plan (02/07/2022 4:08 PM CDT): Advise using Neoprene sleeve to provide pressure to the knee, prevent reaccumulation Keflex x 5 days sent for empiric coverage Wear compression for 2 weeks (may remove at bedtime), elevate the leg above heart level a couple times a day for 10-20 minutes; I applied an Jairo bandage to knee for now Hypercholesterolemia 10/20/2021 Assessment & Plan (10/20/2021 1:12 PM TECHNICIAN ANATOMIC PATHOLOGY): Noted LDL cholesterol is 210, which is very high. Discussed the need to get cholesterol under control. Cut beer intake by 50%, avoid harder liquors Want to convert more to a low-fat diet. More lean meats, grilled/baked rather than fried Lipitor trial. Advised about side effects. I want to recheck liver function to make sure it is safe for the Lipitor. If not, we will adjust our approach. Encounter for medical examination to establish c are 09/01/2021 Assessment & Plan (09/01/2021 4:32 PM TECHNICIAN ANATOMIC PATHOLOGY): A initial well visit to establish care has been performed today. Tomy Srivastava is not up to date on screening tests. He is in need of Colon cancer screening- these have been ordered. He is not up to date on needed preventative vaccinations BP is borderline elevated. We could make a case to start antihypertensive. I do want to see the labs first, however. Continue current regimen Referrals ordered as indicated Tremor- I am leaning towards essential tremor Advised quitting smoking, cutting back 50% on beer over the next couple weeks Recommend cov-19 vaccination (moderna over pfizer) Bipolar 1 disorder 08/30/2021 Immunizations Immunization Administration Dates Next Due Influenza, Quadrivalent, Spl it, Preservative Free, Intramuscular 08/30/2021 Influenza, Unspecified 09/23/2021(Deferr ed: Patient Refused),09/23/2021(Deferred: Patient Refused),09/23/2020(Deferred: Patient Refused),08/07/2020(Deferred: Patient Refused) Social History Tobacco Use Types Packs/Day Years Used Date Smoking Tobacco: Every Day Cigarettes 0.5 29.3 Started: 1995 Smokeless Tobacco: Never Tobacco Cessation:Ready to Q uit: No; Counseling Given: Yes AUDIT-C Answer Date Recorded Q1: How often do you have a drink containing alcohol? 4 or more times a week 08/30/2021 Q2: How many drinks containi ng alcohol do you have on a typical day when you are drinking? 5 or 6 Q3: How often do you have si x or more drinks on one occasion? Less than monthly 08/30/2021 PHQ-2 Answer Date Recorded PHQ-2 Total Score (If total score is 3 or more points, staff should administer the PHQ-9) 3 08/30/2021 Personal Safety Answer Date Recorded Getting School Help Needed Not on file 09/09 Education Answer Date Recorded What is the highest level of school you have completed or the highest degree you have received? High school graduate 08/30/2021 Sex and Gender Information Value Date Recorded Sex Assigned at Not on file Legal Sex Male 1:34 PM TECHNICIAN ANATOMIC PATHOLOGY Gender Identity Not on file Sexual Orientation Not on file Occupation Industry Job Start Date Job End Date [employer] Not on file Not on file Not on file Last Filed Vital Signs Vital Sign Reading Time Taken Comments Blood Pressure 130/92 02/07/2022 8:13 AM CDT Pulse 78 02/07/2022 8:13 AM CDT Temperature 36.1 C (97 F) 02/07/2022 8:13 AM CDT Respiratory Rate 18 02/07/2022 8:13 AM CDT Oxygen Saturation 95% 02/07/2022 8:13 AM CDT Inhaled Oxygen Concentration - - Weight 99.3 kg (219 lb) 02/07/2022 8:13 AM CDT Height 193 cm (6' 3.98 ) 02/07/2022 8:13 AM CDT Body Mass Index 26.67 02/07/2022 8:13 AM CDT Plan of Treatment Not on file Procedures Procedure Name Priority Date/Time Associated Diagnosis Comments PSA SCREEN Routine 08/30/2021 2:55 PM TECHNICIAN ANATOMIC PATHOLOGY Screening for prostate cancer from Last 3 Months or Most Recently Relevant to Health Maintenance Results * PSA screen (08/30/2021 2:55 PM TECHNICIAN ANATOMIC PATHOLOGY) PSA-Total 0.95 ng/mL JULIANE CHEN Comment: Interpretive Data AGE SEX REFERENCE INTERVAL 0 minutes-150 years Female None 0 minutes-49 years Male None 50-59 years Male 0-3.90 60-69 years Male 0-5.40 70-79 years Male 0-6.20 80-150 years Male 0-6.20 Current interpretive data last revised 2018. Blood 08/30/2021 2:55 PM TECHNICIAN ANATOMIC PATHOLOGY 08/30/2021 8:31 PM TECHNICIAN ANATOMIC PATHOLOGY Raymundo Granado MD LAB BLOOD ORDERABLES Final Result Performing Organization Address City/State/ZIP Co co Phone Number JUL[facility] [address] [facility] Department [place] [address] from Last 3 Months or Most Recently Relevant to Health Maintenance Insurance [facility] Care Teams Telecommunications Manager Relationship Specialty Start Date End Date Raymundo Granado MD PCP - General Family Medicine 08/28/21 Mike Orozco MD [address] [place] [address] Consulting Physician Psychiatry 08/30/21
--- OUTSIDE RECORDS SUMMARY | 2025-01-01 13:50 | XMS_ITS | Clinical Summary ---
Author Organization [facility] [address] Address [address] [place] [phone] Care Team Providers Care Registration Officer Name Role Phone Raymundo Granado MD Primary Care Provider [phone] Mike Orozco MD Unavailable Allergies No known [...] 10/20/2021 Assessment & Plan (10/20/2021 1:12 PM TUGBOAT ENGINEER): Noted LDL cholesterol is 210, which is [...] 09/01/2021 Assessment & Plan (09/01/2021 4:32 PM TUGBOAT ENGINEER): A initial well visit to establish care [...] Refused),09/23/2021(Deferred: Patient Refused),09/23/2020(Deferred: Patient Refused),08/07/2020(Deferred: Patient Refused) Surgical History Surgery Date Site/Laterality Comments TYMPANOSTOMY TUBE PLACEMENT 09/23/1981 - 09/22/1982 Righ t HAND SURGERY 09/23/2005 - 09/22/2006 Right Medical History Medical History Date Comments Depression Bipolar 1 disorder (HCC) 08/30/2021 Insomnia Tremor 2016 Alcohol abuse, daily use Social anxiety disorder Family History Medical History Relation Name Comments No Known Problems Brother Alcohol abuse Father Cirrhosis Father No Known Problems Maternal Grandfather No Known Problems Maternal Grandmother Diabetes Mother Heart disease Mother No Known Problems Paternal Grandfather No Known Problems Paternal Grandmother No Known Problems Sister Relation Name Status Comments Brother Alive Father Maternal Grandfather Maternal Grandmother Mother Alive Paternal Grandfather Paternal Grandmother Sister Alive Social History Tobacco Use Types Packs/Day Years [...] on file Legal Sex Male 1:34 PM TUGBOAT ENGINEER Gender Identity Not on file Sexual Orientation Not on file Occupation Industry Job Start Date Job End Date [employer] Not on file Not on file Not on file Obstetrics History Last Filed Vital Signs Vital Sign Reading [...] 02/07/2022 8:13 AM CDT Plan of Treatment Health Maintenance Due Date Last Done Comments Colon Cancer Screening-Colonoscopy 1974 Hepatitis C Screening 1974 DTaP/Tdap/Td Vaccine (1 - Tdap) 1985 Hepatitis B Screening 1992 Pneumococcal vaccine <65 (1 of 2 - PCV) 1993 Depression Screening 08/30/2022 08/30/2021, 08/30/20 21 Regular Well Visit/Exam 18-64 08/30/2022 08/30/2021 Prostate Cancer Screening-PSA 08/30/2023 08/30/2021 Zoster Vaccine (1 of 2) 2024 Influenza Vaccine (Season Ended) 2025 08/30/20 21 Procedures Procedure Name Priority Date/Time Associated Diagnosis Comments PSA SCREEN Routine 08/30/2021 2:55 PM TUGBOAT ENGINEER Screening for prostate cancer from Last 3 Months or Most Recently Relevant to Health Maintenance Results * PSA screen (08/30/2021 2:55 PM TUGBOAT ENGINEER) PSA-Total 0.95 ng/mL JULIANE CHEN Comment: Interpretive Data AGE SEX REFERENCE INTERVAL 0 minutes-150 years Female None 0 minutes-49 years Male None 50-59 years Male 0-3.90 60-69 years Male 0-5.40 70-79 years Male 0-6.20 80-150 years Male 0-6.20 Current interpretive data last revised 2018. Blood 08/30/2021 2:55 PM TUGBOAT ENGINEER 08/30/2021 8:31 PM TUGBOAT ENGINEER us Raymundo Granado MD LAB BLOOD ORDERABLES Final Result JULIANE [address] Department [place] [address] from Last 3 Months or Most Recently Relevant to Health Maintenance Insurance [facility] Care Teams Registration Officer Relationship Specialty Start Date End Date Raymundo Granado MD PCP - General Family Medicine 08/28/21 Mike Orozco MD [address] [place] [address] Consulting Physician Psychiatry 08/30/21
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
[2025-01-01] MEDS: MORPHINE SULFATE (*CRX) 4 MG/ML INJ IM (14:11)
[2025-01-01] MEDS: TETANUS,DIPHTHERIA,AC PERTUSSIS ADULT 0.5 ML (ADACEL) IM (14:13)
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
--- OUTSIDE RECORDS SUMMARY | 2025-01-01 14:49 | XMS_ITS | Clinical Summary ---
Author Organization [facility] Address [address] [place] [address] Care Team Providers Care Motor Express Clerk Name Role Phone None, Provider MD Primary Care Provider Unavaila ble Allergies No known active allergies Medications No known medications Social History Tobacco Use Types Packs/Day Years Used Date Smoking Tobacco: Every Day Smokeless Tobacco: Never Alcohol Use Standard Drinks/Week Comments Yes 0 (1 standard drink = 0.6 oz pure alcohol) pt states drinks alot everyday Sex and Gender Information Value Date Recorded Sex Assigned at Not on file Legal Sex Male 3:11 PM CDT Gender Identity Not on file Sexual Orientation Not on file Last Filed Vital Signs Vital Sign Reading Time Taken Comments Blood Pressure 138/92 03/05/2021 12:25 PM CDT Pulse 87 03/05/2021 12:25 PM CDT Temperature 36.7 C (98.1 F) 03/04/2021 3:12 PM CDT Respiratory Rate 20 03/05/2021 12:25 PM CDT Oxygen Saturation 98% 03/05/2021 12:25 PM CDT Inhaled Oxygen Concentration - - Weight 93.4 kg (206 lb) 03/04/2021 3:12 PM CDT Height 193 cm (6' 4 ) 03/04/2021 3:12 PM CDT Body Mass Index 25.08 03/04/2021 3:12 PM CDT Plan of Treatment Health Maintenance Due Date Last Done Comments Colorectal Cancer Screening Colonoscopy (10 Years) 1974 Annual Physical 1977 Pneumococcal Vaccine: Pediat rics (0 to 5 Years) and At-Risk Patients (6 to 64 Years) (1 of 2 - PCV) 1980 Hepatitis C 1992 DTaP, Tdap and Td Vaccines ( 1 - Tdap) 1993 Hepatitis B Vaccines (1 of 3 - 19+ 3-dose series) 1993 COVID-19 Vaccine (1 - 2023-2 5 season) 2024 Zoster Vaccines (1 of 2) 2024 Meningococcal B Vaccine Aged Out No l onger eligible based on patient's age to complete this topic Meningococcal Vaccine Aged Out No gilles mariia eligible based on patient's age to complete this topic RSV Immunizations Under 20 Months Aged Out No longer eligible based on patient's age to complete this topic Insurance [facility] Care Teams Motor Express Clerk Relationship Specialty Start Date End Date None, Provider, PCP - General 03/04/21
--- OUTSIDE RECORDS SUMMARY | 2025-01-01 14:49 | XMS_ITS | Clinical Summary ---
Author Organization [facility] [email or web address] Address [address] [place] [address] Care Team Providers Care Fringe Weaver Name Role Phone Basil Ch MD Primary Care Provider Source Comments [facility] [email or web address],non-owned Affiliates and Associated Physician Practices is amultiple site organization consisting of ambulatory clinics and hospital sitesin [place], [place], [place] and [place]. This disclosure is being madepursuant to the Care Everywhere program and may not contain all information available regarding this patient. Last updated 18.[facility] [email or web address] Allergies No known active allergies Medications Be [...] age to complete this topic Care Teams Fringe Weaver Relationship Specialty Start Date End Date Basil Ch MD [address] [facility] [address] [place] [address] PCP - General Family Medicine 01/11/18
--- OUTSIDE RECORDS SUMMARY | 2025-01-01 14:49 | XMS_ITS | Referral Summary ---
Author Organization [facility] [address] Address [address] [place] [phone] Care Team Providers Care Boxing Instructor Name Role Phone Raymundo Granado MD Primary Care Provider [phone] Mike Orozco MD Unavailable Allergies No known [...] 10/20/2021 Assessment & Plan (10/20/2021 1:12 PM PROPOSAL DEVELOPMENT MANAGER): Noted LDL cholesterol is 210, which is [...] 09/01/2021 Assessment & Plan (09/01/2021 4:32 PM PROPOSAL DEVELOPMENT MANAGER): A initial well visit to establish care has been performed today. Tomy Sriavstava is not up to date on screening [...] on file Legal Sex Male 1:34 PM PROPOSAL DEVELOPMENT MANAGER Gender Identity Not on file Sexual Orientation [...] Comments PSA SCREEN Routine 08/30/2021 2:55 PM PROPOSAL DEVELOPMENT MANAGER Screening for prostate cancer from Last 3 Months or Most Recently Relevant to Health Maintenance Results * PSA screen (08/30/2021 2:55 PM PROPOSAL DEVELOPMENT MANAGER) PSA-Total 0.95 ng/mL JULIANE CHEN Comment: Interpretive Data AGE SEX REFERENCE INTERVAL 0 minutes-150 years Female None 0 minutes-49 years Male None 50-59 years Male 0-3.90 60-69 years Male 0-5.40 70-79 years Male 0-6.20 80-150 years Male 0-6.20 Current interpretive data last revised 2018. Blood 08/30/2021 2:55 PM PROPOSAL DEVELOPMENT MANAGER 08/30/2021 8:31 PM PROPOSAL DEVELOPMENT MANAGER Raymundo Granado MD LAB BLOOD ORDERABLES Final Result Performing Organization Address City/State/ZIP Co md Phone Number JULIANE [phone] [facility] Department [place] [address] from Last 3 Months or Most Recently Relevant to Health Maintenance Insurance [facility] Care Teams Boxing Instructor Relationship Specialty Start Date End Date Raymundo Granado MD PCP - General Family Medicine 08/28/21 Mike Orozco MD [address] [place] [address] Consulting Physician Psychiatry 08/30/21
--- OUTSIDE RECORDS SUMMARY | 2025-01-01 14:49 | XMS_ITS | Clinical Summary ---
Author Organization [facility] [address] [place] Address [address] [place] [phone] Care Team Providers Care Home Care Aide Name Role Phone Raymundo Granado MD Primary Care Provider [phone] Mike Orozco MD Unavailable Allergies No known [...] 10/20/2021 Assessment & Plan (10/20/2021 1:12 PM HEART SPECIALIST): Noted LDL cholesterol is 210, which is [...] 09/01/2021 Assessment & Plan (09/01/2021 4:32 PM HEART SPECIALIST): A initial well visit to establish care [...] on file Legal Sex Male 1:34 PM HEART SPECIALIST Gender Identity Not on file Sexual Orientation [...] Comments PSA SCREEN Routine 08/30/2021 2:55 PM HEART SPECIALIST Screening for prostate cancer from Last 3 Months or Most Recently Relevant to Health Maintenance Results * PSA screen (08/30/2021 2:55 PM HEART SPECIALIST) PSA-Total 0.95 ng/mL JULIANE CHEN Comment: Interpretive Data AGE SEX REFERENCE INTERVAL 0 minutes-150 years Female None 0 minutes-49 years Male None 50-59 years Male 0-3.90 60-69 years Male 0-5.40 70-79 years Male 0-6.20 80-150 years Male 0-6.20 Current interpretive data last revised 2018. Blood 08/30/2021 2:55 PM HEART SPECIALIST 08/30/2021 8:31 PM HEART SPECIALIST us Raymundo Granado MD LAB BLOOD ORDERABLES Final Result JULIANE [id number] [address] Department [place] [address] from Last 3 Months or Most Recently Relevant to Health Maintenance Insurance [employer] [facility] Care Teams Home Care Aide Relationship Specialty Start Date End Date Raymundo Granado MD PCP - General Family Medicine 08/28/21 Mike Orozco MD [address] [place] [address] Consulting Physician Psychiatry 08/30/21
[2025-01-01] MEDS: LIDOCAINE 1% LOCAL INJ 10 ML VIAL INFILTRATE (15:15)
[2025-01-01 15:42] VITALS: BP 157/99; PULSE 73; RESP 16; TEMP 37.1; O2SAT 99
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
== END 2025-01-01 15:45 | disposition home or self-care (01) ==
PROVIDERS: Emergency Provider Family Medicine; PCP Family Medicine
DX: S51.812A Laceration without foreign body of left forearm, initial encounter (principal); F17.210 Nicotine dependence, cigarettes, uncomplicated; X99.1XXA Assault by knife, initial encounter; Z23 Encounter for immunization
CPT/HCPCS: 73200; 90471; 90715; 96372; 99284; J2003; J2270

== ENCOUNTER 2025-01-01 18:30 | Emergency (ER) | payer SELFPAY ==
--- OUTSIDE RECORDS SUMMARY | 2025-01-01 18:32 | XMS_ITS | Referral Summary ---
Author Organization [facility] [address] Address [address] [place] [phone] Care Team Providers Care Hse Coordinator Name Role Phone Raymundo Granado MD Primary Care Provider [phone] Mike Orozco MD Unavailable Allergies No known [...] 10/20/2021 Assessment & Plan (10/20/2021 1:12 PM SENIOR CONTROLS ANALYST): Noted LDL cholesterol is 210, which is [...] 09/01/2021 Assessment & Plan (09/01/2021 4:32 PM SENIOR CONTROLS ANALYST): A initial well visit to establish care [...] on file Legal Sex Male 1:34 PM SENIOR CONTROLS ANALYST Gender Identity Not on file Sexual Orientation [...] Comments PSA SCREEN Routine 08/30/2021 2:55 PM SENIOR CONTROLS ANALYST Screening for prostate cancer from Last 3 Months or Most Recently Relevant to Health Maintenance Results * PSA screen (08/30/2021 2:55 PM SENIOR CONTROLS ANALYST) PSA-Total 0.95 ng/mL JULIANE CHEN Comment: Interpretive Data AGE SEX REFERENCE INTERVAL 0 minutes-150 years Female None 0 minutes-49 years Male None 50-59 years Male 0-3.90 60-69 years Male 0-5.40 70-79 years Male 0-6.20 80-150 years Male 0-6.20 Current interpretive data last revised 2018. Blood 08/30/2021 2:55 PM SENIOR CONTROLS ANALYST 08/30/2021 8:31 PM SENIOR CONTROLS ANALYST Raymundo Granado MD LAB BLOOD ORDERABLES Final Result Performing Organization Address City/State/ZIP Co dc Phone Number JULIANE [phone] [facility] Department [place] [address] from Last 3 Months or Most Recently Relevant to Health Maintenance Insurance [facility] Care Teams Hse Coordinator Relationship Specialty Start Date End Date Raymundo Granado MD PCP - General Family Medicine 08/28/21 Mike Orozco MD [address] [place] [address] Consulting Physician Psychiatry 08/30/21
--- OUTSIDE RECORDS SUMMARY | 2025-01-01 18:32 | XMS_ITS | Clinical Summary ---
Author Organization [facility] [address] [place] Address [address] [place] [phone] Care Team Providers Care Art Gallery Internship Name Role Phone Raymundo Granado MD Primary Care Provider [phone] Mike Orozco MD Unavailable Allergies No known [...] 10/20/2021 Assessment & Plan (10/20/2021 1:12 PM PAINT SPRAYER SANDBLASTER): Noted LDL cholesterol is 210, which is [...] 09/01/2021 Assessment & Plan (09/01/2021 4:32 PM PAINT SPRAYER SANDBLASTER): A initial well visit to establish care [...] on file Legal Sex Male 1:34 PM PAINT SPRAYER SANDBLASTER Gender Identity Not on file Sexual Orientation [...] Comments PSA SCREEN Routine 08/30/2021 2:55 PM PAINT SPRAYER SANDBLASTER Screening for prostate cancer from Last 3 Months or Most Recently Relevant to Health Maintenance Results * PSA screen (08/30/2021 2:55 PM PAINT SPRAYER SANDBLASTER) PSA-Total 0.95 ng/mL JULIANE CHEN Comment: Interpretive Data AGE SEX REFERENCE INTERVAL 0 minutes-150 years Female None 0 minutes-49 years Male None 50-59 years Male 0-3.90 60-69 years Male 0-5.40 70-79 years Male 0-6.20 80-150 years Male 0-6.20 Current interpretive data last revised 2018. Blood 08/30/2021 2:55 PM PAINT SPRAYER SANDBLASTER 08/30/2021 8:31 PM PAINT SPRAYER SANDBLASTER us Raymundo Granado MD LAB BLOOD ORDERABLES Final Result JULIANE [id number] [address] Department [place] [address] from Last 3 Months or Most Recently Relevant to Health Maintenance Insurance [facility] [facility] Care Teams Art Gallery Internship Relationship Specialty Start Date End Date Raymundo Granado MD PCP - General Family Medicine 08/28/21 Mike Orozco MD [address] [place] [address] Consulting Physician Psychiatry 08/30/21
--- OUTSIDE RECORDS SUMMARY | 2025-01-01 18:32 | XMS_ITS | Clinical Summary ---
Author Organization [facility] Address [address] [place] [address] Care Team Providers Care Cottrell Blower Name Role Phone None, Provider MD Primary [...] age to complete this topic Insurance [facility] Care Teams Cottrell Blower Relationship Specialty Start Date End Date None, Provider, PCP - General 03/04/21
--- OUTSIDE RECORDS SUMMARY | 2025-01-01 18:32 | XMS_ITS | Clinical Summary ---
Author Organization [facility] [employer] Address [address] [facility] [place] [address] Care Team Providers Care Superintendent Custodian Janitor Name Role Phone Basil Ch MD Primary Care Provider [phone] Source Comments [facility] [employer],non-owned Affiliates and Associated Physician Practices is amultiple site organization consisting of ambulatory clinics and hospital sitesin [place], [place], [place] and [place]. This disclosure is being madepursuant to the Care Everywhere program and may not contain all informatio navailable regarding this patient. Last updated 18.[facility] [employer] Allergies No known active allergies Medications Be [...] Health Maintenance Due Date Last Done Comments JUDY (AGES 45-75) - COL ON CA SCREENING [...] age to complete this topic Care Teams Superintendent Custodian Janitor Relationship Specialty Start Date End Date Basil Ch MD [address] [facility] [address] [place] [address] PCP - General Family Medicine 01/11/18
[2025-01-01 18:39] VITALS: BP 138/82; PULSE 79; RESP 16; TEMP 36.6; O2SAT 100
--- NOTE | 2025-01-01 19:00 | PC.NURSE ---
report to brian solis
--- NOTE | 2025-01-01 19:03 | PC.NURSE ---
Pt states that he is in pain, might be having a panic attack. He has a hx of panic attacks.
--- OUTSIDE RECORDS SUMMARY | 2025-01-01 19:05 | XMS_ITS | Clinical Summary ---
Author Organization [facility] [employer] Address [address] [place] [address] Care Team Providers Care Vacation Planner Name Role Phone Basil Ch MD Primary Care Provider [phone] Source Comments [facility] [employer],non-owned Affiliates and Associated Physician Practices is amultiple site organization consisting of ambulatory clinics and hospital sitesin [place], [place], [place] and [place]. This disclosure is being madepursuant to the Care Everywhere program and may not contain all information available regarding this patient. Last updated 18.[facility] [employer] Allergies No known active allergies Medications [...] age to complete this topic Care Teams Vacation Planner Relationship Specialty Start Date End Date Basil Ch MD [address] [facility] [address] [place] [address] PCP - General Family Medicine 01/11/18
--- OUTSIDE RECORDS SUMMARY | 2025-01-01 19:06 | XMS_ITS | Referral Summary ---
Author Organization [facility] [address] [place] Address [address] [place] [phone] Care Team Providers Care Tax Assessor Name Role Phone Raymundo Granado MD Primary Care Provider [phone] Mike Orozco MD Unavailable Allergies No known [...] 10/20/2021 Assessment & Plan (10/20/2021 1:12 PM FACSIMILE OPERATOR): Noted LDL cholesterol is 210, which is [...] 09/01/2021 Assessment & Plan (09/01/2021 4:32 PM FACSIMILE OPERATOR): A initial well visit to establish care [...] on file Legal Sex Male 1:34 PM FACSIMILE OPERATOR Gender Identity Not on file Sexual Orientation [...] Comments PSA SCREEN Routine 08/30/2021 2:55 PM FACSIMILE OPERATOR Screening for prostate cancer from Last 3 Months or Most Recently Relevant to Health Maintenance Results * PSA screen (08/30/2021 2:55 PM FACSIMILE OPERATOR) PSA-Total 0.95 ng/mL JULIANE CHEN Comment: Interpretive Data AGE SEX REFERENCE INTERVAL 0 minutes-150 years Female None 0 minutes-49 years Male None 50-59 years Male 0-3.90 60-69 years Male 0-5.40 70-79 years Male 0-6.20 80-150 years Male 0-6.20 Current interpretive data last revised 2018. Blood 08/30/2021 2:55 PM FACSIMILE OPERATOR 08/30/2021 8:31 PM FACSIMILE OPERATOR Raymundo Granado MD LAB BLOOD ORDERABLES Final Result Performing Organization Address City/State/ZIP Co [place] Phone Number JULIANE [address] [facility] Department [place] [address] from Last 3 Months or Most Recently Relevant to Health Maintenance Insurance [facility] Care Teams Tax Assessor Relationship Specialty Start Date End Date Raymundo Granado MD PCP - General Family Medicine 08/28/21 Mike Orozco MD [address] [place] [address] Consulting Physician Psychiatry 08/30/21
--- OUTSIDE RECORDS SUMMARY | 2025-01-01 19:06 | XMS_ITS | Clinical Summary ---
Author Organization [facility] [address] [place] Address [address] [place] [phone] Care Team Providers Care Human Resources Consultant Name Role Phone Raymundo Granado MD Primary Care Provider [phone] Mike Orozco MD Unavailable Allergies No known [...] 10/20/2021 Assessment & Plan (10/20/2021 1:12 PM VICE PRESIDENT): Noted LDL cholesterol is 210, which is [...] 09/01/2021 Assessment & Plan (09/01/2021 4:32 PM VICE PRESIDENT): A initial well visit to establish care [...] on file Legal Sex Male 1:34 PM VICE PRESIDENT Gender Identity Not on file Sexual Orientation [...] Comments PSA SCREEN Routine 08/30/2021 2:55 PM VICE PRESIDENT Screening for prostate cancer from Last 3 Months or Most Recently Relevant to Health Maintenance Results * PSA screen (08/30/2021 2:55 PM VICE PRESIDENT) PSA-Total 0.95 ng/mL JULIANE CHEN Comment: Interpretive Data AGE SEX REFERENCE INTERVAL 0 minutes-150 years Female None 0 minutes-49 years Male None 50-59 years Male 0-3.90 60-69 years Male 0-5.40 70-79 years Male 0-6.20 80-150 years Male 0-6.20 Current interpretive data last revised 2018. Blood 08/30/2021 2:55 PM VICE PRESIDENT 08/30/2021 8:31 PM VICE PRESIDENT us Raymundo Granado MD LAB BLOOD ORDERABLES Final Result JULIANE [address] [address] Department [place] [address] from Last 3 Months or Most Recently Relevant to Health Maintenance Insurance [facility] Care Teams Human Resources Consultant Relationship Specialty Start Date End Date Raymundo Granado MD PCP - General Family Medicine 08/28/21 Mike Orozco MD [address] [place] [address] Consulting Physician Psychiatry 08/30/21
--- OUTSIDE RECORDS SUMMARY | 2025-01-01 19:06 | XMS_ITS | Clinical Summary ---
Author Organization [facility] Address [address] [place] [address] Care Team Providers Care Platen Grinder Name Role Phone None, Provider MD Primary [...] age to complete this topic Insurance [facility] Care Teams Platen Grinder Relationship Specialty Start Date End Date None, Provider, PCP - General 03/04/21
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
[2025-01-01 19:12] VITALS: BP 166/95; PULSE 83; RESP 16; O2SAT 100
[2025-01-01] MEDS: HYDROcodone/acetaminophen (*CRX) 10-325 MG TABLET 1 TAB PO (19:21)
--- NOTE | 2025-01-01 19:45 | PC.NURSE ---
ERP aware of pt's vitals. No new orders.
== END 2025-01-01 19:53 | disposition home or self-care (01) ==
PROVIDERS: Emergency Provider Family Medicine; PCP Family Medicine
DX: S51.812D Laceration without foreign body of left forearm, subsequent encounter (principal); X99.1XXD Assault by knife, subsequent encounter
CPT/HCPCS: 99283; A9270

== ENCOUNTER 2025-01-21 15:34 | Emergency (ER) | payer SELFPAY ==
[2025-01-21 15:34] VITALS: BP 153/95; PULSE 88; RESP 14; TEMP 36.5; O2SAT 97
--- NOTE | 2025-01-21 15:46 | ED.WOUNDLAC ---
HPI - Wound/Laceration General Chief Complaint: Wound/Laceration Stated Complaint: stitches removal Time Seen by Provider: 01/21/25 15:46 Source: patient Mode of arrival: ambulatory Limitations: no limitations History of Present Illness HPI narrative: this is a 49-year-old male with some presents with sutures to his left forearm that need removal the area is well approximated with no drainage no redness no erythema no fever chills. Onset (ago): week(s) Extremity Location: Left: arm ( 3 sutures) Place: work Patient tetanus UTD: Yes Context: accidental Related Data Home Medications ?Medication ?Instructions ?Recorded ?Confirmed ?Last Taken ?Type olanzapine 20 mg tablet 10 mg PO BID 08/08/21 08/08/21 Unknown History trazodone 50 mg tablet 50 mg PO HS PRN Sleep 08/08/21 08/08/21 Unknown History Allergies Allergy/AdvReac Type Severity Reaction Status Date / Time No Known Allergies Allergy Verified 01/01/25 15:30 Review of Systems Review of Systems: All systems reviewed & are unremarkable except as noted in HPI and below PMFSH Past Medical History Medical History Alcohol abuse Continuous tobacco abuse Bipolar disorder Surgical History Surgical History History of hand surgery Repair of fracture Status post myringotomy with tube placement of both ears Family History Family History Mother Acute myocardial infarction Congestive heart failure Diabetes mellitus Hypertension Grandparent Acute myocardial infarction Congestive heart failure Diabetes mellitus Other Cerebrovascular accident Diabetes mellitus Sibling Diabetes mellitus Social History Social History Social History: He recently lost his job as a [employer]. He has moved back in with his mother and developmentally disabled sister. He drinks about 10 beers a day if he can afford it. He has smoked a pack of cigarettes per day since the age of 20. He last snorted cocaine 1 week ago. He occasionally smoke marijuana. Smoking packs per day: 1 Smoking cigarettes per day: 20.0 Years smoked: 26 Smoking pack-years: 26.00 Smoking status: Current every day smoker Tobacco type: cigarettes Second hand tobacco smoke exposure: Yes Alcohol intake: current Drinks per week: 70 Substance use: current Substance use type: unknown Last use: 2 weeks ago Spiritual care concerns: No Exam Const: General: healthy appearing and no acute distress Nutritional Appearance: well nourished Orientation/consciousness: patient oriented x3 Limitations: no limitations Resp: Effort & Inspection: normal respiratory effort Auscultation: clear to auscultation bilaterally Cardio: Rate: regular rate Rhythm: regular rhythm Skin: Wounds: wounds noted Other: 3 sutures in left forearm the area is well approximated with no redness no gaping no drainage no erythema. Extrem: General: normal to inspection Course Course Emergency Course: Three sutures removed from left forearm. Critical Care Time Critical Care Time Critical Care Time: No Discharge Plan Discharge Clinical Impression: Visit for suture removal Patient Disposition: Home Condition: Stable Instructions: Antibiotic Form, Laceration (ED) Additional Instructions: advised follow-up with primary care physician if symptoms persist or worsen. Patient Language: Danish Prescriptions: No Action doxycycline hyclate 100 mg tablet 100 mg PO Q12H Qty: 20 0RF doxycycline hyclate 100 mg tablet 100 mg PO BID Qty: 20 0RF olanzapine 20 mg tablet 10 mg PO BID trazodone 50 mg tablet 50 mg PO HS PRN (Reason: Sleep) olanzapine 5 mg Tablet 10 mg PO BID 0RF amlodipine [Norvasc] 5 mg Tablet 5 mg PO QAM 0RF lamotrigine [Lamictal] 25 mg Tablet 25 mg PO Q12HR 0RF fluoxetine 20 mg Tablet 20 mg PO DAILY 0RF Follow-up/Referrals: Amarjit Cervantes MD [Physician] - Time of Disposition: 15:49
--- OUTSIDE RECORDS SUMMARY | 2025-01-21 15:47 | XMS_ITS | Clinical Summary ---
Author Organization [facility] Address [address] [place] [address] Care Team Providers Care Telephone Directory Distributor Driver Name Role Phone Basil Ch MD Primary Care Provider [phone] Source Comments [facility],non-owned Affiliates and Associated Physician Practices is amultiple site organization consisting of ambulatory clinics and hospital sitesin [place], [place], [place] and [place]. This disclosure is being madepursuant to the Care Everywhere program and may not contain all information available regarding this patient. Last updated 18.[facility] Allergies No known active allergies Medications * Be aware that medications may not be up to date on this document. Alwaysverify current medications with the patient. No known medications Social History Tobacco Use Types Packs/Day Years Used Date Smoking Tobacco: Every Day Smokeless Tobacco: Never Alcohol Use Standard Drinks/Week Comments No 0 (1 standard drink = 0.6 oz pur e alcohol) clean for 2 years Sex and Gender Information Value Date Recorded Sex Assigned at Not on file Legal Sex Male 6:08 PM CDT Gender Identity Not on file [...] 50+ (1 of 2 - PCV) 1993 COVID-19 [...] patient's age to complete this topic Insurance [facility] Care Teams Telephone Directory Distributor Driver Relationship Specialty Start Date End Date Basil Ch MD [address] [id number] PCP - General Family Medicine 01/11/18
--- OUTSIDE RECORDS SUMMARY | 2025-01-21 15:47 | XMS_ITS | Referral Summary ---
Author Organization [facility] [address] Address [address] [place] [id number] Care Team Providers Care Shank Boner Name Role Phone Raymundo Granado MD Primary Care Provider [phone] Mike Orozco MD Unavailable Allergies No known [...] 10/20/2021 Assessment & Plan (10/20/2021 1:12 PM MOHS SURGEON/GENERAL DERMATOLOGIST): Noted LDL cholesterol is 210, which is [...] 09/01/2021 Assessment & Plan (09/01/2021 4:32 PM MOHS SURGEON/GENERAL DERMATOLOGIST): A initial well visit to establish care [...] on file Legal Sex Male 1:34 PM MOHS SURGEON/GENERAL DERMATOLOGIST Gender Identity Not on file Sexual Orientation [...] Comments PSA SCREEN Routine 08/30/2021 2:55 PM MOHS SURGEON/GENERAL DERMATOLOGIST Screening for prostate cancer from Last 3 Months or Most Recently Relevant to Health Maintenance Results * PSA screen (08/30/2021 2:55 PM MOHS SURGEON/GENERAL DERMATOLOGIST) PSA-Total 0.95 ng/mL JULIANE CHEN Comment: Interpretive Data AGE SEX REFERENCE INTERVAL 0 minutes-150 years Female None 0 minutes-49 years Male None 50-59 years Male 0-3.90 60-69 years Male 0-5.40 70-79 years Male 0-6.20 80-150 years Male 0-6.20 Current interpretive data last revised 2018. Blood 08/30/2021 2:55 PM MOHS SURGEON/GENERAL DERMATOLOGIST 08/30/2021 8:31 PM MOHS SURGEON/GENERAL DERMATOLOGIST Raymundo Granado MD LAB BLOOD ORDERABLES Final Result Performing Organization Address City/State/ZIP Co ma Phone Number JULIANE [id number] [facility] Department [place] [address] from Last 3 Months or Most Recently Relevant to Health Maintenance Insurance [facility] Care Teams Shank Boner Relationship Specialty Start Date End Date Raymundo Granado MD PCP - General Family Medicine 08/28/21 Mike Orozco MD [address] [place] [address] Consulting Physician Psychiatry 08/30/21
--- OUTSIDE RECORDS SUMMARY | 2025-01-21 15:47 | XMS_ITS | Clinical Summary ---
Author Organization [facility] Address [address] [place] [id number] Care Team Providers Care Assembler [employer] Spider Name Role Phone None, Provider MD Primary [...] Colonoscopy (10 Years) 1974 Annual Physical 1977 Hepatitis C 1992 DTaP, Tdap and Td Vaccines ( 1 - Tdap) 1993 Hepatitis B Vaccines (1 of 3 - 19+ 3-dose series) 1993 Pneumococcal Vaccine: 50+ Ye ars (1 of 2 - PCV) 1993 COVID-19 Vaccine ( - 2023-2 5 season) 2024 Zoster Vaccines [...] age to complete this topic Insurance MEDICAID [employer] Care Teams Assembler [employer] Spider Relationship Specialty Start Date End Date None, Provider, PCP - General 03/04/21
--- OUTSIDE RECORDS SUMMARY | 2025-01-21 15:47 | XMS_ITS | Clinical Summary ---
Author Organization [facility] [address] Address [address] [place] [id number] Care Team Providers Care Sink Cutter Name Role Phone Raymundo Granado MD Primary Care Provider [phone] Mike Orozco MD Unavailable Allergies No known [...] 10/20/2021 Assessment & Plan (10/20/2021 1:12 PM MECHANICAL SOUND TECHNICIAN): Noted LDL cholesterol is 210, which is [...] 09/01/2021 Assessment & Plan (09/01/2021 4:32 PM MECHANICAL SOUND TECHNICIAN): A initial well visit to establish care [...] on file Legal Sex Male 1:34 PM MECHANICAL SOUND TECHNICIAN Gender Identity Not on file Sexual Orientation [...] Comments PSA SCREEN Routine 08/30/2021 2:55 PM MECHANICAL SOUND TECHNICIAN Screening for prostate cancer from Last 3 Months or Most Recently Relevant to Health Maintenance Results * PSA screen (08/30/2021 2:55 PM MECHANICAL SOUND TECHNICIAN) PSA-Total 0.95 ng/mL JULIANE CHEN Comment: Interpretive Data AGE SEX REFERENCE INTERVAL 0 minutes-150 years Female None 0 minutes-49 years Male None 50-59 years Male 0-3.90 60-69 years Male 0-5.40 70-79 years Male 0-6.20 80-150 years Male 0-6.20 Current interpretive data last revised 2018. Blood 08/30/2021 2:55 PM MECHANICAL SOUND TECHNICIAN 08/30/2021 8:31 PM MECHANICAL SOUND TECHNICIAN us Raymundo Granado MD LAB BLOOD ORDERABLES Final Result JULIANE [id number] Department [place] [address] from Last 3 Months or Most Recently Relevant to Health Maintenance Insurance [employer] [facility] Care Teams Sink Cutter Relationship Specialty Start Date End Date Raymundo Granado MD PCP - General Family Medicine 08/28/21 Mike Orozco MD [address] [place] [address] Consulting Physician Psychiatry 08/30/21
[2025-01-21 15:54] VITALS: BP 153/95; PULSE 88; RESP 14; TEMP 36.5; O2SAT 97
== END 2025-01-21 15:54 | disposition home or self-care (01) ==
PROVIDERS: Emergency Provider Emergency Medicine; PCP Family Medicine
DX: Z48.02 Encounter for removal of sutures (principal); F17.210 Nicotine dependence, cigarettes, uncomplicated
CPT/HCPCS: 15853; 99282

== ENCOUNTER 2025-07-05 15:37 | Emergency (ER) | payer SELFPAY ==
[2025-07-05 15:46] VITALS: BP 141/92; PULSE 69; RESP 16; TEMP 36.2; O2SAT 99
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
== END 2025-07-05 15:56 | disposition home or self-care (01) ==
DX: S01.01XD Laceration without foreign body of scalp, subsequent encounter (principal); W50.0XXD Accidental hit or strike by another person, subsequent encounter; F17.210 Nicotine dependence, cigarettes, uncomplicated
CPT/HCPCS: 99211; G0463